=== PATIENT | male | born 1985 | race Caucasian/White ===

== ENCOUNTER 2021-12-25 13:50 | Emergency (ER) | payer OTHER, SELFPAY ==
[2021-12-25 13:52] VITALS: BP 141/90; PULSE 85; RESP 15; TEMP 36.3; O2SAT 98; BMI 34.7
--- NOTE | 2021-12-25 14:38 | ED.VIS.GI ---
HPI HPI - GI History of Present Illness Chief Complaint: Flank Pain Narrative Narrative: 36-year-old male presents with 1 week of right flank pain. He states the pain starts in his low back area, and radiates all the way up to his shoulder. He states has been relatively constant for the last week. He has tried Tylenol without relief. It is worse with movement at times. He denies any dysuria or hematuria. Has had past medical history of kidney stones in the past but states this does not feel anything like it. No fevers or chills. No cough. He denies any DVT or PE risk factors. His pain is worse with working. Additionally, he comments that his skin in that area all along his right back has been sore. He presents for evaluation of the pain in his low back radiating upward. [facility] Medical History (Updated 12/25/21 @ 16:21 by Casey Mcpherson MD) Kidney stones Home Medications cyclobenzaprine 10 mg tablet 10 mg PO TID PRN muscle spasm #20 tabs 12/25/21 [Rx Last Taken Unknown] naproxen 500 mg tablet 500 mg PO BID PRN #20 tabs 12/25/21 [Rx Last Taken Unknown] Allergy/AdvReac Type Severity Reaction Status Date / Time pantoprazole Allergy Shortness Verified 12/25/21 13:54 of breath Social History Smoking Status: Never smoker ROS ROS ED ROS Narrative Constitutional: No fever, no chills. HEENT: No sore throat. No neck pain. No loss of vision. No rhinorrhea. Cardiovascular: No chest pain. No palpitations. No pedal edema. Respiratory: No cough, no shortness of breath. Abdominal: No abdominal pain. No nausea. No vomiting. Genitourinary: No dysuria. No hematuria. Musculoskeletal: No myalgias. No arthralgias. Neurologic: No headaches. No dizziness. No lightheadedness. Skin: No rash. No change in color. Sore in right low back radiating upward toward shoulder. Psychiatric: No depression. No anxiety. EXAM Physical Exam Narrative Exam Narrative: Afebrile. Vital signs noted. HEENT: Normocephalic. Atraumatic. PERRL, EOMI. Neck soft and supple. No point tenderness or step off. Cardiovascular: Regular rate and rhythm. No murmurs, rubs, or gallops appreciated. Respiratory: No tachypnea. Lungs clear to auscultation bilaterally. Gastrointestinal: Abdomen soft, nontender, with normoactive bowel sounds. No rebound or guarding. Neurological: Awake. Alert. Nonfocal, nonlateralizing. Skin: No rash. Normal color. No pallor. Musculoskeletal: No pedal edema. Full range of motion extremities. No vertebral point tenderness or step-off noted throughout spine. No CVA tenderness to percussion. Const Vital Signs: 12/25/21 13:52 12/25/21 14:53 12/25/21 14:50 Temperature 97.3 F L Temperature Source Temporal Pulse Rate 85 77 Respiratory Rate 15 17 Respiratory Effort Respiratory Pattern Blood Pressure 141/90 H 121/82 H Blood Pressure Mean 107 95 Pulse Ox 98 99 99 Oxygen Delivery Method Room Air Room Air Room Air 12/25/21 15:02 12/25/21 16:00 Temperature Temperature Source Pulse Rate 69 Respiratory Rate 17 Respiratory Effort Normal Non-Labored Respiratory Pattern Normal Blood Pressure 122/75 H Blood Pressure Mean 90 Pulse Ox 96 Oxygen Delivery Method Room Air MDM MDM MDM Narrative Medical decision making narrative: This does not sound like ureterolithiasis pain. It does sound more musculoskeletal. Comprehensive work-up was pursued. My interpretation of his EKG is that it demonstrates normal sinus rhythm at 77 bpm without ectopy or acute ST changes. No STEMI. CBC is grossly normal with a normal white count of 8.3, normal hemoglobin of 14.5, normal platelet count of 244. Electrolyte panel shows slightly elevated chloride of 108 but normal glucose of 105 with an anion gap normal at 5. Troponin is negative at 5. Urinalysis shows no evidence of bladder infection. Chest x-ray interpreted by myself shows no acute process, no pneumonia. At this point in time, after Toradol intravenously, he feels improved. I feel he can be discharged safely home with follow-up to a primary care provider. He was written prescriptions for naproxen and cyclobenzaprine. I do feel that is more likely musculoskeletal pain that he is experiencing. Return instructions to the emergency department were reviewed. Disposition is discharged home in stable condition. Lab Data Attestation: I reviewed the patient's lab results. Labs: Laboratory Results - last 24 hr 12/25/21 12/25/2112/25/22 15:00 15:00 15:25 WBC 8.3 RBC 4.81 Hgb 14.5 Hct 42.9 MCV 89.2 MCH 30.1 MCHC 33.8 RDW Std Deviation 41.1 RDW Coeff of Shahid 12.6 Plt Count 244 MPV 10.8 Immature Gran % (Auto) 0.200 Neut % (Auto) 53.9 Lymph % (Auto) 33.7 [place] % (Auto) 7.5 Eos % (Auto) 4.3 Baso % (Auto) 0.4 Absolute Neuts (auto) 4.5 Absolute Lymphs (auto) 2.79 Nucleated RBC % 0 Sodium 140 Potassium 3.8 Chloride 108 H Carbon Dioxide 27.0 Anion Gap 5 BUN 20 H Creatinine 1.11 Estim Creat Clear Calc 93.77 Est GFR (MDRD) Af Amer 97 Est GFR (MDRD) Non-Af 80 BUN/Creatinine Ratio 18.0 Glucose 105 Calcium 9.2 Troponin I High Sens 5 Urine Color Yellow Urine Clarity Sl. Cloudy Urine pH 6.5 Ur Specific [place] 1.020 Urine Protein 15 H Urine Glucose (UA) Normal Urine Ketones 5 H Urine Occult Blood Negative Urine Nitrite Negative Urine Bilirubin Negative Urine Urobilinogen 1 H Ur Leukocyte Esterase 25 H Urine RBC 0 SEEN Urine WBC 0 SEEN Ur Squamous Epith Cells 0 SEEN Amorphous Sediment 1+ Urine Bacteria 0 SEEN Urine Mucus 0 SEEN Radiography Diagnostic Testing: Clinical Impression(s) from Imaging Studies Chest X-Ray 12/25/21 15:08 IMPRESSION: Normal x-ray examination of the chest. Electronically Signed: Kenny Morris MD at 15:21 EST , Discharge Plan Triage Chief Complaint: Flank Pain ED Provider: Casey Mcpherson Dx/Rx/DC Orders Clinical Impression: Right flank pain, Acute right-sided thoracic back pain Instructions: ED Back Pain (Acute or Chronic), ED Flank Pain, Uncertain Cause Prescriptions: New naproxen 500 mg tablet 500 mg PO BID PRN Qty: 20 0RF cyclobenzaprine 10 mg tablet 10 mg PO TID PRN (Reason: muscle spasm) Qty: 20 0RF Primary Care Provider: Care Physician,No Primary Referrals: Nancy Naik MD [Med Staff - [employer]] - As soon as possible NOT,DEFINED [Non-Staff] - Disposition Disposition: Home, Self Care
[2021-12-25 14:50] VITALS: BP 121/82; PULSE 77; RESP 17; O2SAT 99
[2021-12-25 14:53] VITALS: O2SAT 99
[2021-12-25] MEDS: Ketorolac 15 MG/ML Vial IV (14:59)
[2021-12-25] MEDS: Aspirin 81 MG TAB.CHEW 324 MG PO (15:00)
[2021-12-25] MEDS: 0.9% Normal Saline 1,000 ML 1000 ML IV (15:00)
--- NOTE | 2021-12-25 15:08 | RAD_ITS ---
STUDY: X-RAY CHEST REASON FOR EXAM: Male, 36 years old. Right-sided chest pain and back pain. TECHNIQUE: Single AP portable view of the chest. COMPARISON: None. FINDINGS: EKG electrodes are seen. The lungs are clear and expanded. There is no demonstrated pleural abnormality. Normal size heart. Normal mediastinum and ilene. Normal visualized pulmonary arteries. Normal visualized aortic arch and descending thoracic aorta. Normal visualized thoracic spine. Normal visualized ribs, clavicles, and shoulders. There is no demonstrated abnormality of the visualized soft tissue structures of the upper abdomen. RAD/Chest 1 View (Portable) IMPRESSION: Normal x-ray examination of the chest. Electronically Signed: Kenny Morris MD at 15:21 EST ,
[2021-12-25 15:14] LABS: Absolute Lymphocyte Count 2.79 X10^3/uL (0.83-4.51); Absolute Neutrophil Count 4.5 X10^3/uL (2.0-7.7); Basophil# 0.03 X10^3/uL; Basophil% 0.4 % (0-1); Eosinophil# 0.36 X10^3/uL; Eosinophils% 4.3 % (0-5); Hematocrit 42.9 % (40-54); Hemoglobin 14.5 g/dL (13.0-16.5); Lymphocyte # 2.79 X10^3/ul (0.83-4.51); Lymphocyte % 33.7 % (19-41); Mean Corp Hgb Conc 33.8 g/dL (32-36); Mean Corpuscular Hgb 30.1 pg (27.0-32.0); Mean Corpuscular Volume 89.2 fL (80-94); Mean Platelet Vol. 10.8 fl (6.2-12.0); Monocyte# 0.62 X10^3/uL; Monocyte% 7.5 % (0-10); NRBC Flagged by Analyzer 0 % (0-5); Neutrophil # 4.46 X10^3/uL (2.7-7.7); Neutrophil % 53.9 % (47-70); Platelet Count 244 K/mm3 (150-450); RBC Distribution Width CV 12.6 % (11.6-14.6); RBC Distribution Width SD 41.1 fl (35.1-43.9); Red Blood Count 4.81 M/mm3 (4.6-6.2); White Blood Count 8.3 K/mm3 (4.4-11.0)
[2021-12-25 15:31] LABS: Bacteria 0 SEEN /hpf (None Seen); Mucous, Urine 0 SEEN /hpf (<or=2+); Red Blood Cells-Urine 0 SEEN /hpf (0-5); Squamous Epithelial Cells - UA 0 SEEN /hpf (0-5); White Blood Cells 0 SEEN /hpf (0-5)
[2021-12-25 15:38] LABS: Anion Gap 5 (5-15); BUN 20 mg/dL (7-18); Calcium,Total 9.2 mg/dL (8.5-10.1); Chloride 108 mmol/L (98-107); Creatinine, Serum 1.11 mg/dL (0.70-1.30); EST Glomerular Filtration Rate 80 mL/min (>60); Est Glom Filt Rate - Afr Amer 97 mL/min (>60); Estimated Creatinine Clearance 93.77 ml/min; Glucose 105 mg/dL (74-106); Potassium 3.8 mmol/L (3.5-5.1); Sodium Level 140 mmol/L (136-145); Troponin-I HS (w/2H Reflex) 5 pg/mL (3.0-78.0)
[2021-12-25 15:41] LABS: Color, Urine Yellow (Yellow); Glucose, Dipstick Normal (Normal); Ketone-Dipstick 5 mg/dl (Negative); Leukocyte Esterase-Dipstick 25 /ul (Negative); Nitrite-Dipstick Negative (Negative); Occult Blood-Urine Negative /ul (Negative); Protein-Dipstick 15 mg/dl (Negative); Urine Bilirubin Dipstick Negative (Negative); Urine Clarity Sl. Cloudy (Clear); Urine Urobilinogen 1 mg/dl (Normal); Urine pH 6.5 (5.0 - 8.0)
[2021-12-25 15:55] LABS: Amorphous Sediment 1+
[2021-12-25 16:00] VITALS: BP 122/75; PULSE 69; RESP 17; O2SAT 96
[2021-12-25 17:10] LABS: Reflex Troponin-HS? (from REC) Y
[2021-12-25 17:12] VITALS: BP 125/74; PULSE 62; RESP 15; O2SAT 98
== END 2021-12-25 17:13 | disposition home or self-care (01) ==
PROVIDERS: Emergency Provider Emergency Medicine; Visit Provider Emergency Medicine
DX: R10.9 Unspecified abdominal pain (principal); M54.6 Pain in thoracic spine; M54.50 Low back pain, unspecified; Z87.442 Personal history of urinary calculi
CPT/HCPCS: 71045; 80048; 81001; 84484; 85025; 93005; 96361; 96374; 99284; J7030; A4216

== ENCOUNTER 2022-04-23 11:57 | Emergency (ER) | payer OTHER, SELFPAY ==
[2022-04-23 11:57] VITALS: BP 149/96; PULSE 79; RESP 16; TEMP 36.8; O2SAT 98; BMI 30.5
--- NOTE | 2022-04-23 12:56 | CT_ITS ---
STUDY: CT ABDOMEN AND PELVIS WITHOUT CONTRAST REASON FOR EXAM: Male, 37 years old. Right-sided flank pain RADIATION DOSAGE (If Supplied By Facility): CTDIvol = ( 11.40 ) mGy, DLP = ( 558.57 ) mGycm TECHNIQUE: Transaxial images were obtained from the dome of the diaphragm to the symphysis pubis without oral contrast, and without intravenous contrast. Sagittal and coronal images were reconstructed. Individualized dose optimization techniques were used for this CT. COMPARISON: None. FINDINGS: The visualized lung bases are unremarkable. The visualized portions of the heart are within normal limits. Normal liver. Normal gallbladder and extrahepatic biliary system. Normal spleen. Normal pancreas. Normal bilateral adrenal glands. Normal right kidney. Normal left kidney. Normal visualized stomach. Normal small intestine. Normal colon. The appendix is visualized and appears normal. Appendix seen on coronal recon image 57 Normal abdominal aorta. Normal inferior vena cava. Normal retroperitoneum. Normal urinary bladder. Normal abdominal wall. Normal osseous structures. CT/Abdomen/Pelvis without Cont IMPRESSION: No suspicious solid organ abnormality, specifically, no obstructive uropathy or solid renal lesion No free intraperitoneal fluid, air, or suspicious adenopathy, normal appendix visualized Electronically Signed: Berto Amin MD at 13:38 EDT ,
[2022-04-23] MEDS: Morphine 2 MG/ML Syringe IV (13:06)
[2022-04-23] MEDS: Ondansetron 4 MG/2 ML Vial IV (13:06)
[2022-04-23 13:15] LABS: Red Blood Cells-Urine 0 SEEN /hpf (0-5); Squamous Epithelial Cells - UA 0 SEEN /hpf (0-5)
[2022-04-23 13:23] LABS: Absolute Lymphocyte Count 3.58 X10^3/uL (0.83-4.51); Absolute Neutrophil Count 4.6 X10^3/uL (2.0-7.7); Basophil# 0.05 X10^3/uL; Basophil% 0.6 % (0-1); Eosinophil# 0.08 X10^3/uL; Eosinophils% 0.9 % (0-5); Hemoglobin 15.7 g/dL (13.0-16.5); Lymphocyte # 3.58 X10^3/ul (0.83-4.51); Lymphocyte % 40.2 % (19-41); Mean Corp Hgb Conc 34.1 g/dL (32-36); Mean Corpuscular Hgb 29.2 pg (27.0-32.0); Mean Corpuscular Volume 85.5 fL (80-94); Mean Platelet Vol. 10.9 fl (6.2-12.0); Monocyte# 0.58 X10^3/uL; Monocyte% 6.5 % (0-10); NRBC Flagged by Analyzer 0 % (0-5); Neutrophil % 51.6 % (47-70); Platelet Count 296 K/mm3 (150-450); RBC Distribution Width CV 12.4 % (11.6-14.6); RBC Distribution Width SD 38.4 fl (35.1-43.9); Red Blood Count 5.38 M/mm3 (4.6-6.2); White Blood Count 8.9 K/mm3 (4.4-11.0)
[2022-04-23 13:24] LABS: Color, Urine Yellow (Yellow); Glucose, Dipstick Normal (Normal); Ketone-Dipstick 5 mg/dl (Negative); Leukocyte Esterase-Dipstick 100 /ul (Negative); Nitrite-Dipstick Negative (Negative); Occult Blood-Urine Negative /ul (Negative); Protein-Dipstick 30 mg/dl (Negative); Urine Bilirubin Dipstick Negative (Negative); Urine Clarity Sl. Cloudy (Clear); Urine Urobilinogen 4 mg/dl (Normal)
--- NOTE | 2022-04-23 13:25 | EDS_ITS ---
HPI History of Present Illness Chief Complaint: Abd Pain Narrative Narrative: Patient presents with right lower quadrant abdominal pain for 2 days, he has had 4 episodes of loose stools. There is some nausea and anorexia. No fevers or chills no back pain or flank pain. No urinary symptoms. [facility], [facility] Medical History Anxiety Kidney stones Home Medications naproxen 500 mg tablet 500 mg PO BID PRN #20 tabs 12/25/21 [Rx Last Taken Unknown] albuterol sulfate 2.5 mg/3 mL (0.083 %) solution for nebulization 2.5 mg inhalation Q4H PRN asthma 04/23/22 [History Last Taken Unknown] albuterol sulfate 90 mcg/actuation aerosol inhaler (ProAir HFA) 2 puff inhalation Q6H PRN ASTHMA 04/23/22 [History Last Taken Unknown] buspirone 10 mg tablet 10 mg PO TID 04/23/22 [History Last Taken Unknown] fluoxetine 40 mg capsule (Prozac) 40 mg PO DAILY 04/23/22 [History Last Taken Unknown] fluticasone propionate 110 mcg/actuation HFA aerosol inhaler (Flovent HFA) 2 puff inhalation BID 04/23/22 [History Last Taken Unknown] hydroxyzine HCl 25 mg tablet 25 mg PO BID PRN Anxiety 04/23/22 [History Last Taken Unknown] montelukast 10 mg tablet (Singulair) 10 mg PO QHS 04/23/22 [History Last Taken Unknown] sulfamethoxazole 800 mg-trimethoprim 160 mg tablet (Bactrim DS) 1 tab PO BID #14 tabs 04/23/22 [Rx Last Taken Unknown] Allergy/AdvReac Type Severity Reaction Status Date / Time pantoprazole Allergy Shortness Verified 04/23/22 11:59 of breath Social History Smoking Status: Never smoker ROS ROS ED ROS Narrative Past medical history: Reviewed Medications: Reviewed Social history: Noncontributory Review of systems: All systems negative except as indicated General: No fever Neck: No neck pain Cardiovascular: No chest pain Respiratory: No shortness of breath or cough Gastrointestinal: Abdominal pain as in HPI Genitourinary: No dysuria Musculoskeletal: Denies myalgias no difficulty with ambulation Skin: No rash Neurological: No memory loss, confusion or any focal weakness EXAM Physical Exam Narrative Exam Narrative: Physical exam General: Well nourished, Well developed, No Acute Distress Head: Normocephalic, Atraumatic Eyes: Conjunctiva not pale ENT: Moist mucous membranes Neck: Supple, Nontender, No lymphadenopathy Cardiovascular: Regular rate, Regular rhythm Respiratory: No distress, CTA bilaterally Abdomen: Soft, right lower quadrant abdominal tenderness without guarding or rebound. No flank pain. Back: Nontender, Normal Inspection. Negative for: CVA tenderness Extremities: Nontender, No edema Skin: Normal color, No rash Neurological: Alert, Normal Strength, Normal Sensation Psychological: Somewhat anxious Const Vital Signs: 04/23/22 11:57 Temperature 98.2 F Temperature Source Temporal Pulse Rate 79 Respiratory Rate 16 Blood Pressure 149/96 H Blood Pressure Mean 113 Pulse Ox 98 Oxygen Delivery Method Room Air MDM MDM MDM Narrative Medical decision making narrative: Patient has a normal CBC and CMP. He does have a urinary tract infection CT is unremarkable. There is no evidence of evidence of appendicitis, no evidence of colitis, no evidence of kidney stone or pyelonephritis. He appears well I believe he can be safely discharged with oral antibiotics. If anything changes she is to return. Lab Data Labs: Laboratory Results - last 24 hr 04/23/22 04/23/22 04/23/22 12:40 12:40 13:10 WBC 8.9 RBC 5.38 Hgb 15.7 Hct 46.0 MCV 85.5 MCH 29.2 MCHC 34.1 RDW Std Deviation 38.4 RDW Coeff of Shahid 12.4 Plt Count 296 MPV 10.9 Immature Gran % (Auto) 0.200 Neut % (Auto) 51.6 Lymph % (Auto) 40.2 [place] % (Auto) 6.5 Eos % (Auto) 0.9 Baso % (Auto) 0.6 Absolute Neuts (auto) 4.6 Absolute Lymphs (auto) 3.58 Nucleated RBC % 0 Sodium 140 Potassium 3.3 L Chloride 107 Carbon Dioxide 24.0 Anion Gap 9 BUN 24 H Creatinine 1.04 Estim Creat Clear Calc 102.36 Est GFR (MDRD) Af Amer 105 Est GFR (MDRD) Non-Af 86 BUN/Creatinine Ratio 23.1 H Glucose 108 H Calcium 9.2 Total Bilirubin 1.30 H AST 13 L ALT 28 Alkaline Phosphatase 82 Total Protein 7.3 Albumin 4.0 Globulin 3.3 Albumin/Globulin Ratio 1.2 Urine Color Yellow Urine Clarity Sl. Cloudy Urine pH 7.0 Ur Specific [place] 1.020 Urine Protein 30 H Urine Glucose (UA) Normal Urine Ketones 5 H Urine Occult Blood Negative Urine Nitrite Negative Urine Bilirubin Negative Urine Urobilinogen 4 H Ur Leukocyte Esterase 100 H Urine RBC 0 SEEN Urine WBC 10-25 SEEN Ur Squamous Epith Cells 0 SEEN Urine Bacteria 1+ Urine Mucus 2+ Radiography Diagnostic Testing: Clinical Impression(s) from Imaging Studies Abdomen/Pelvis CT 04/23/22 12:56 IMPRESSION: No suspicious solid organ abnormality, specifically, no obstructive uropathy or solid renal lesion No free intraperitoneal fluid, air, or suspicious adenopathy, normal appendix visualized Electronically Signed: eBrto Amin MD at 13:38 EDT Reading Location ID and State: [address] [place] [address] , Service support , Discharge Plan Triage Chief Complaint: Abd Pain ED Provider: Mik Brown Dx/Rx/DC Orders Clinical Impression: Abdominal pain, Urinary tract infection Instructions: Urinary Tract Infections in Men Prescriptions: New sulfamethoxazole-trimethoprim [Bactrim DS] 800-160 mg tablet 1 tab PO BID Qty: 14 0RF No Action naproxen 500 mg tablet 500 mg PO BID PRN Qty: 20 0RF fluoxetine [Prozac] 40 mg Capsule 40 mg PO DAILY albuterol sulfate 2.5 mg /3 mL (0.083 %) Solution For Nebulization 2.5 mg INHALATION Q4H PRN (Reason: asthma) buspirone [BuSpar] 10 mg Tablet 10 mg PO TID montelukast [Singulair] 10 mg Tablet 10 mg PO QHS hydroxyzine HCl [Atarax] 25 mg Tablet 25 mg PO BID PRN (Reason: Anxiety) albuterol sulfate [ProAir HFA] 90 mcg/actuation Hfa Aerosol Inhaler 2 puff INHALATION Q6H PRN (Reason: ASTHMA) fluticasone propionate [Flovent HFA] 110 mcg/actuation Hfa Aerosol Inhaler 2 puff INHALATION BID Primary Care Provider: Riddhi Chery NP Referrals: Hwodeky,Riddhi Reshma [employer]POSITION INSTRUCTOR [Other] - 3-5 Days Disposition Disposition: Home, Self Care
[2022-04-23 13:34] LABS: Bacteria 1+ /hpf (None Seen); Mucous, Urine 2+ /hpf (<or=2+); White Blood Cells 10-25 SEEN /hpf (0-5)
[2022-04-23 13:38] LABS: ALB/GLOB Ratio 1.2 RATIO (0.9-2.4); AST(SGOT) 13 U/L (15-37); Alanine Aminotransfer ALT/SGPT 28 U/L (16-61); Alkaline Phosphatase 82 U/L (45-117); Anion Gap 9 (5-15); BUN 24 mg/dL (7-18); BUN/Creat Ratio 23.1 RATIO (10-20); Calcium,Total 9.2 mg/dL (8.5-10.1); Chloride 107 mmol/L (98-107); Creatinine, Serum 1.04 mg/dL (0.70-1.30); EST Glomerular Filtration Rate 86 mL/min (>60); Est Glom Filt Rate - Afr Amer 105 mL/min (>60); Estimated Creatinine Clearance 102.36 ml/min; Globulin 3.3 g/dL (2.2-4.2); Glucose 108 mg/dL (74-106); Potassium 3.3 mmol/L (3.5-5.1); Protein, Total 7.3 g/dL (6.4-8.2); Sodium Level 140 mmol/L (136-145)
[2022-04-23] MEDS: Smz/Tmp Ds Tablet 1 TABLET PO (14:15)
== END 2022-04-23 14:23 | disposition home or self-care (01) ==
PROVIDERS: Emergency Provider Emergency Medicine; Visit Provider Emergency Medicine
DX: N39.0 Urinary tract infection, site not specified (principal); R19.7 Diarrhea, unspecified; R63.0 Anorexia
CPT/HCPCS: 74176; 80053; 81001; 85025; 96361; 96374; 96375; 99284; J7040; A4216; J2405

== ENCOUNTER 2022-04-26 11:32 | Emergency (ER) | payer OTHER, SELFPAY ==
[2022-04-26 11:34] VITALS: BP 157/115; PULSE 103; RESP 16; TEMP 36.3; O2SAT 100; BMI 30.3
--- NOTE | 2022-04-26 12:06 | EDS_ITS ---
HPI History of Present Illness Chief Complaint: Complaint Informant: patient Onset/Context/Timing Onset: Weeks (1) Context: Gradual Onset Timing: Continuous Quality: Aching, sharp Location: Lower abdomen, right groin Worsened by: Movement Relieved by: Nothing Narrative Narrative: Patient presents with lower abdominal pain and dysuria that has been getting worse over the past week. Patient states he was seen here 3 days ago and diagnosed with a urinary tract infection. Patient states he was started on Bactrim for this. Patient states it has not been helping. Patient states his pain is getting worse. Patient states his pain is worse with certain movements. Patient admits to some burning with urination. Patient states he has pain in his right groin and lower abdomen. Patient describes it as aching and sharp at times. Patient also admits to some pain in his chest and cough. Patient also admits to some shortness of breath. Patient admits to some subjective chills but denies any fevers. [facility] Medical History (Updated 04/26/22 @ 14:[address] Rolan Flores, ) Anxiety Asthma Kidney stones Sleep apnea Home Medications naproxen 500 mg tablet 500 mg PO BID PRN #20 tabs 12/25/21 [Rx Last Taken Unknown] albuterol sulfate 2.5 mg/3 mL (0.083 %) solution for nebulization 2.5 mg inhalation Q4H PRN asthma 04/23/22 [History Last Taken Unknown] albuterol sulfate 90 mcg/actuation aerosol inhaler (ProAir HFA) 2 puff inhalation Q6H PRN ASTHMA 04/23/22 [History Last Taken Unknown] buspirone 10 mg tablet 10 mg PO TID 04/23/22 [History Last Taken Unknown] fluoxetine 40 mg capsule (Prozac) 40 mg PO DAILY 04/23/22 [History Last Taken Unknown] fluticasone propionate 110 mcg/actuation HFA aerosol inhaler (Flovent HFA) 2 p uff inhalation BID 04/23/22 [History Last Taken Unknown] hydroxyzine HCl 25 mg tablet 25 mg PO BID PRN Anxiety 04/23/22 [History Last Taken Unknown] montelukast 10 mg tablet (Singulair) 10 mg PO QHS 04/23/22 [History Last Taken Unknown] sulfamethoxazole 800 mg-trimethoprim 160 mg tablet (Bactrim DS) 1 tab PO BID #14 tabs 04/23/22 [Rx Last Taken Unknown] hydrocodone-acetaminophen 5-325mg 5mg-325mg 1 tab PO Q6H PRN PRN Pain 3 days #10 TABLETS 04/26/22 [Rx Last Taken Unknown] Allergy/AdvReac Type Severity Reaction Status Date / Time pantoprazole Allergy Shortness Verified 04/26/22 11:36 of breath Social History Smoking Status: Never smoker ROS ROS ED Constitutional Constitutional ED: Reports chills and subjective; Denies fever(s) Eyes Eyes: Reports blurry vision; Denies diplopia ENT ENT ED: Denies rhinorrhea or sore throat Cardiovascular Cardiovascular: Reports chest pain; Denies palpitations Respiratory/Chest Respiratory/Chest: Reports cough and dyspnea Gastrointestinal Gastrointestinal: Reports abdominal pain, constipation and nausea; Denies vomiting Genitourinary Genitourinary ED: Reports dysuria; Denies hematuria Musculoskeletal Musculoskeletal: Reports back pain; Denies neck pain Integumentary Denies abscess or rash Neurologic Neurologic: Reports headache(s) and paresthesias Allergic/Immunologic Allergic/Immunologic ED: Denies mouth swelling or urticaria EXAM Physical Exam Const Vital Signs: 04/26/22 11:34 04/26/22 12:32 Temperature 97.3 F L 97.8 F Temperature Source Temporal Oral Pulse Rate 103 H 114 H Respiratory Rate 16 16 Blood Pressure 157/115 H 143/89 H Blood Pressure Mean 129 107 Pulse Ox 100 97 Oxygen Delivery Method Room Air Room Air Positive well nourished and well developed General Appearance ED: well developed HEENT Reports moist mucous membranes Neck supple and no JVD Resp normal respiratory effort and clear to auscultation bilaterally Cardio regular rate, regular rhythm and no murmurs GI normal to inspection, nondistended, normoactive bowel sounds Palpation: soft and tender LLQ, RLQ and suprapubic; Negative for guarding or rebound tenderness present Extremity normal to inspection General Extremety ED: Negative for edema or tenderness General Extremity: Negative for edema Neuro oriented x3 and CN's II-XII intact bilaterally Sensorium / Orientation: alert Psych mental status grossly normal Skin no rashes or lesions noted MDM MDM MDM Narrative Medical decision making narrative: Differential diagnose includes urinary tract infection, appendicitis, inguinal hernia, pyelonephritis, and gastroenteritis. Urinalysis will be obtained to assess for urinary tract infection and hematuria. CBC will be obtained to assess for leukocytosis and anemia. Basic metabolic profile will be obtained to assess for electrolyte abnormality and renal function. CT scan of the abdomen pelvis will be obtained to assess for appendicitis, ureteral calculus, and pyelonephritis. Lab Data Lab results narrative: CBC was reviewed and was within normal limits. Basic metabolic profile was reviewed and was within normal limits. Urinalysis was reviewed. There is no evidence of urinary tract infection or hematuria. Labs: Laboratory Results - last 24 hr 04/26/22 04/26/22 04/26/22 11:57 12:30 12:30 WBC 7.3 RBC 5.60 Hgb 16.5 Hct 47.9 MCV 85.5 MCH 29.5 MCHC 34.4 RDW Std Deviation 38.0 RDW Coeff of Shahid 12.2 Plt Count 315 MPV 10.7 Immature Gran % (Auto) 0.400 Neut % (Auto) 52.0 Lymph % (Auto) 39.7 [place] % (Auto) 6.3 Eos % (Auto) 1.1 Baso % (Auto) 0.5 Absolute Neuts (auto) 3.8 Absolute Lymphs (auto) 2.89 Nucleated RBC % 0 Sodium 138 Potassium 4.0 Chloride 107 Carbon Dioxide 22.0 Anion Gap 9 BUN 19 H Creatinine 1.24 Estim Creat Clear Calc 85.85 Est GFR (MDRD) Af Amer 85 Est GFR (MDRD) Non-Af 71 BUN/Creatinine Ratio 15.3 Glucose 114 H Calcium 9.4 Urine Color Yellow Urine Clarity Sl. Cloudy Urine pH 7.0 Ur Specific [place] 1.010 Urine Protein 30 H Urine Glucose (UA) Normal Urine Ketones 5 H Urine Occult Blood 10 H Urine Nitrite Negative Urine Bilirubin Negative Urine Urobilinogen 4 H Ur Leukocyte Esterase 25 H Urine RBC 0-5 SEEN Urine WBC 0-5 SEEN Ur Squamous Epith Cells 0-5 SEEN Urine Bacteria 1+ Urine Mucus 2+ Radiography Diagnostic Testing: Clinical Impression(s) from Imaging Studies Abdomen/Pelvis CT 04/26/22 12:14 IMPRESSION: No suspicious solid organ abnormality. No free intraperitoneal fluid, air, or suspicious adenopathy, normal appendix visualized No interval change Electronically Signed: Berto Amin MD at 13:13 EDT , CT scan of the abdomen pelvis was obtained. There is no free air or free fluid. The appendix was visualized and was normal. There is no inguinal hernia noted. This was interpreted by the radiologist and was also independently reviewed by myself. Treatment and Re-Evaluation :: Patient was advised of his findings. Patient was instructed to complete his antibiotics as prescribed. Patient was instructed to follow-up with his primary care physician in 5 to 7 days. Patient was given a prescription for a short course of [place]. Patient understood and was agreeable with the plan. All questions were answered. Prior to being discharged, mother came back in the room and requested to speak with myself. I discussed the patient results with the mother and advised her of his results. She was upset that he was being discharged and was still in pain. I advised her that he was given a prescription for pain medication. I also advised her that he does not need to be admitted to the hospital with normal labs and a normal CT scan. I do not feel any further testing is necessary at this time. She was upset and wanted more testing to be done. I asked her what specific test she would like to have done she said she did not know. I advised her that he needs to follow-up with his primary care physician and there is other outpatient testing that may need to be done but not on an emergency basis. Mother stated what should I do when he passes away. I advised the mother that he does not have a life-threatening condition at this time. Mother was still upset and left with his instructions and lab work. Discharge Plan Triage Chief Complaint: Complaint ED Provider: Rolan Flores Dx/Rx/DC Orders Clinical Impression: Abdominal pain Instructions: ED Abdominal Pain Unkn Cause Male... Prescriptions: New hydrocodone-acetaminophen [hydrocodone-acetaminophen] 5-325 mg tablet 1 tab PO Q6H PRN PRN (Reason: Pain) 3 Days Qty: 10 0RF No Action naproxen 500 mg tablet 500 mg PO BID PRN Qty: 20 0RF fluoxetine [Prozac] 40 mg Capsule 40 mg PO DAILY albuterol sulfate 2.5 mg /3 mL (0.083 %) Solution For Nebulization 2.5 mg INHALATION Q4H PRN (Reason: asthma) buspirone [BuSpar] 10 mg Tablet 10 mg PO TID montelukast [Singulair] 10 mg Tablet 10 mg PO QHS hydroxyzine HCl [Atarax] 25 mg Tablet 25 mg PO BID PRN (Reason: Anxiety) albuterol sulfate [ProAir HFA] 90 mcg/actuation Hfa Aerosol Inhaler 2 puff INHALATION Q6H PRN (Reason: ASTHMA) fluticasone propionate [Flovent HFA] 110 mcg/actuation Hfa Aerosol Inhaler 2 puff INHALATION BID sulfamethoxazole-trimethoprim [Bactrim DS] 800-160 mg tablet 1 tab PO BID Qty: 14 0RF Primary Care Provider: MARTIR SALDIVAR Referrals: MARTIR SALDIVAR [Other] - 3-5 Days [facility] Doctor,Out of [Non-Staff] - Disposition Disposition: Home, Self Care
[2022-04-26 12:12] LABS: Color, Urine Yellow (Yellow); Glucose, Dipstick Normal (Normal); Ketone-Dipstick 5 mg/dl (Negative); Leukocyte Esterase-Dipstick 25 /ul (Negative); Nitrite-Dipstick Negative (Negative); Occult Blood-Urine 10 /ul (Negative); Protein-Dipstick 30 mg/dl (Negative); Urine Bilirubin Dipstick Negative (Negative); Urine Clarity Sl. Cloudy (Clear); Urine Urobilinogen 4 mg/dl (Normal)
--- NOTE | 2022-04-26 12:14 | CT_ITS ---
STUDY: CT ABDOMEN AND PELVIS WITHOUT CONTRAST REASON FOR EXAM: Male, 37 years old. Lower abdominal pain RADIATION DOSAGE (If Supplied By Facility): CTDIvol = ( 10.17 ) mGy, DLP = ( 507.99 ) mGycm TECHNIQUE: Transaxial images were obtained from the dome of the diaphragm to the symphysis pubis without oral contrast, and without intravenous contrast. Sagittal and coronal images were reconstructed. Individualized dose optimization techniques were used for this CT. COMPARISON: 04/23/2022 FINDINGS: The visualized lung bases are unremarkable. The visualized portions of the heart are within normal limits. Normal liver. Normal gallbladder and extrahepatic biliary system. Normal spleen. Normal pancreas. Normal bilateral adrenal glands. Normal right kidney. Normal left kidney. Normal visualized stomach. Normal small intestine. Normal colon. The appendix is visualized and appears normal. Appendix seen on coronal recon images 65 through 70 Normal abdominal aorta. Normal inferior vena cava. Normal retroperitoneum. Normal urinary bladder. There are prostatic calcifications. Normal abdominal wall. Normal osseous structures. CT/Abdomen/Pelvis without Cont IMPRESSION: No suspicious solid organ abnormality. No free intraperitoneal fluid, air, or suspicious adenopathy, normal appendix visualized No interval change Electronically Signed: Berto Amin MD at 13:13 EDT ,
[2022-04-26 12:19] LABS: Bacteria 1+ /hpf (None Seen); Mucous, Urine 2+ /hpf (<or=2+); Red Blood Cells-Urine 0-5 SEEN /hpf (0-5); Squamous Epithelial Cells - UA 0-5 SEEN /hpf (0-5); White Blood Cells 0-5 SEEN /hpf (0-5)
[2022-04-26 12:32] VITALS: BP 143/89; PULSE 114; RESP 16; TEMP 36.6; O2SAT 97
[2022-04-26 12:38] LABS: Absolute Lymphocyte Count 2.89 X10^3/uL (0.83-4.51); Absolute Neutrophil Count 3.8 X10^3/uL (2.0-7.7); Basophil# 0.04 X10^3/uL; Basophil% 0.5 % (0-1); Eosinophil# 0.08 X10^3/uL; Eosinophils% 1.1 % (0-5); Hematocrit 47.9 % (40-54); Hemoglobin 16.5 g/dL (13.0-16.5); Lymphocyte # 2.89 X10^3/ul (0.83-4.51); Lymphocyte % 39.7 % (19-41); Mean Corp Hgb Conc 34.4 g/dL (32-36); Mean Corpuscular Hgb 29.5 pg (27.0-32.0); Mean Corpuscular Volume 85.5 fL (80-94); Mean Platelet Vol. 10.7 fl (6.2-12.0); Monocyte# 0.46 X10^3/uL; Monocyte% 6.3 % (0-10); NRBC Flagged by Analyzer 0 % (0-5); Neutrophil # 3.78 X10^3/uL (2.7-7.7); Platelet Count 315 K/mm3 (150-450); RBC Distribution Width CV 12.2 % (11.6-14.6); White Blood Count 7.3 K/mm3 (4.4-11.0)
[2022-04-26] MEDS: Ondansetron 4 MG/2 ML Vial IV (12:39)
[2022-04-26] MEDS: Morphine 4 MG/ML Syringe IV (12:39)
[2022-04-26] MEDS: 0.9% Normal Saline 1,000 ML 1000 ML IV (12:39)
[2022-04-26 12:49] LABS: Anion Gap 9 (5-15); BUN 19 mg/dL (7-18); BUN/Creat Ratio 15.3 RATIO (10-20); Calcium,Total 9.4 mg/dL (8.5-10.1); Chloride 107 mmol/L (98-107); Creatinine, Serum 1.24 mg/dL (0.70-1.30); EST Glomerular Filtration Rate 71 mL/min (>60); Est Glom Filt Rate - Afr Amer 85 mL/min (>60); Estimated Creatinine Clearance 85.85 ml/min; Glucose 114 mg/dL (74-106); Sodium Level 138 mmol/L (136-145)
--- NOTE | 2022-04-26 14:46 | NURSING ---
Pt and mother asked to speak to MD as this RN attempted to provide d/c paperwork and information. Mother refused to relay information to this RN as to why. Dr. Flores in to speak with family. Pt's mother demanded to see test results which Dr. Flores provided them with. This RN tried to explain the test results to pt and mother however kept getting interrupted with other questions and comments. Pt stated multiple times that these people don't know what they're doing and that the pt was going to go home and because we didn't do anything for him. This RN attempted to reassure pt and mother that his ct results were normal and wbc normal indicating that there is no infection. This RN gave d/c paperwork with recommendation to follow up with PCP in next few days and the rationale as to why. Pt and mother continue tangential questions and rude comments. Pt and mother were told by this RN that they were being very rude d/t the comments they were making and lack of listening to the education attempting to be provided. Pt began screaming at this RN and mother demanded health policy manager as well as another MD. This RN notified them that that would be provided. Security was called to bedside d/t pt volume. Ultimately pt and mother left within a few minutes. Mother yelled at this RN about not getting her another MD. This RN informed her that she would have to wait for another MD to be available. Pt and mother left anyway.
== END 2022-04-26 14:50 | disposition home or self-care (01) ==
PROVIDERS: Emergency Provider Emergency Medicine; Visit Provider Emergency Medicine
DX: R10.9 Unspecified abdominal pain (principal); R06.02 Shortness of breath; R30.9 Painful micturition, unspecified; J45.909 Unspecified asthma, uncomplicated
CPT/HCPCS: 74176; 80048; 81001; 85025; 87086; 96361; 96374; 96375; 99283; J7030; A4216; J2405